=== PATIENT | male | born 1955 | race Hispanic/Latino ===

== ENCOUNTER → 2020-01-07 07:02 | Outpatient (CLI) | payer MEDICARE, OTHER, SELFPAY ==
[2020-01-07 09:59] LABS: Alanine Aminotransferase 25 IU/L (<50); Albumin 3.9 g/dL (3.5-5.0); Albumin Globulin Ratio 1.3 (1.0-2.8); Alkaline Phosphatase 74 U/L (38-126); Aspartate Aminotransferase 26 IU/L (17-59); BUN Creatinine Ratio 24.7 (6-22); Bilirubin Total 0.4 mg/dL (0.2-1.3); Blood Urea Nitrogen 21 mg/dL (9-20); Calcium 8.8 mg/dL (8.4-10.2); Carbon Dioxide 28 mmol/L (22-32); Chloride 105 mmol/L (98-107); Cholesterol 183 mg/dL (140-199); Estimated Glomerular Filt Rate > 60.0 mL/min (>60); Glucose 94 mg/dL (80-110); HDL Cholesterol 45 mg/dL (40-60); HEMOLYSIS < 15 (0-50); LDL Cholesterol Calculated 119 mg/dL (<100); Potassium 4.1 mmol/L (3.4-5.1); Sodium 140 mmol/L (137-145); Total Protein 6.9 g/dL (6.3-8.2); Triglycerides 96 mg/dL (35-150)
[2020-01-07 10:19] LABS: Erythrocyte Sedimentation Rate 6 MM/HR (0-15)
[2020-01-07 10:26] LABS: Prostate Specific Antigen 2.24 ng/mL (0.10-4.00)
[2020-01-07 10:56] LABS: Hemoglobin A1C% w Est Avg Glu 5.8 % (4.0-6.0)
== END ==
PROVIDERS: PCP Family Medicine; Referring Provider Family Medicine; Visit Provider Family Medicine
DX: M25.40 Effusion, unspecified joint (principal); R21 Rash and other nonspecific skin eruption
CPT/HCPCS: 36415; 80053; 80061; 83036; 84153; 85651

== ENCOUNTER → 2020-02-19 09:23 | Outpatient (CLI) | payer MEDICARE, OTHER, SELFPAY ==
[2020-02-20 09:39] LABS: COVID19 Sendout NOT DETECTED (Not Detect)
== END ==
PROVIDERS: PCP Family Medicine; Visit Provider Physician Assistant
DX: Z01.812 Encounter for preprocedural laboratory examination (principal)
CPT/HCPCS: 87635

== ENCOUNTER 2020-02-22 09:46 | Day surgery (SDC) | payer MEDICARE, OTHER, SELFPAY ==
[2020-02-22] VITALS (7 sets, daily range): BP systolic 109–174; BP diastolic 74–99; PULSE 51–67; RESP 11–20; TEMP 36.6–36.7; O2SAT 95–99; BMI 28.5
--- NOTE | 2020-02-22 | PATH_ITS ---
[facility] Accession Number: [id number] . 01 Material submitted: . cecum - CECAL POLYP . 02 Diagnosis: Cecum, Polyp, Biopsy: Tubulovillous adenoma. No evidence of malignancy or high-grade dysplasia. MRV 02/23/2020 1159 Local . 02 Electronically signed: . Kelsi Hallman MD, Pathologist NPI- [id number] . 01 Gross description: . CECAL POLYP: Received in formalin are multiple fragment(s) of poon, soft tissue measuring 1.5 x 1.0 x 0.5 cm in aggregate submitted entirely in 1 cassette(s) /QBJ 02/22/2020 2119 Local . 02 Pathologist provided ICD-10: D12.0 . 02 CPT . 621174 Performed at: 01 [facility] [address] [id number] MD Indra Porter MD Phone: [phone] Performed at: [address] [facility] [address] [place], [place] [id number] MD Kelsi Hallman MD Phone: [phone]
--- NOTE | 2020-02-22 09:47 | PM.HP.1 ---
History of Present Illness History of Present Illness Date Patient Seen: 02/22/20 Time Patient Seen: 09:47 Chief complaint: [id number] Narrative: The patient presents for colorectal sreening. They had a previous colonoscopy 5 years ago that demonstrated an adenomatous polyp which was removed. No personal or family history of colon cancer. On further history denies any recent gastrointestinal symptoms. No nausea, vomiting, abdominal pain, loss of appetite, unexplained weight loss, change in bowel habits, diarrhea, constipation, melena, hematochezia, or bright red blood per rectum. Patient History Medical History Allergic dermatitis (Acute) Tubular adenoma of colon (Acute) Umbilical hernia (Acute) Well adult (Acute) Family & Social History Family History Father Cancer Sister Cancer Tobacco & Substance use: Smoking Status Former smoker alcohol intake current Meds Home Medications and Allergies Home Medications Medication Instructions Recorded Confirmed Type No Known Home Medications 01/06/20 02/10/20 History Allergies Allergy/AdvReac Type Severity Reaction Status Date / Time No Known Drug Allergies Allergy Verified 02/22/20 10:01 Review of Systems Review of Systems Narrative: A 10 point review of systems is negative except as noted in the HPI Exam Narrative Exam Narrative: General-no acute distress, well nourished HEENT-moist mucous membranes, no scleral icterus Neck-supple, no lymphadenopathy Chest- non labored respirations, clear to auscultation bilaterally Cardiac-regular rate no peripheral edema Abdomen-soft, nontender, non distended Extremities-warm, well perfused Neurological-alert and oriented, no focal deficits Assessment & Plan Assessment and plan (1) Screening for colon cancer: Status: Acute Assessment & Plan narrative: The patient requires colorectal screening and colonoscopy is recommended. Technical details were discussed. Risks, benefits, alternatives explained. Risks including but not limited to myocardial infarction, aspiration, bleeding, pain, missed lesion, incomplete examination, need for further radiographic studies, colonic perforation, and need for major abdominal surgery were discussed. All questions were answered to their satisfaction, and they are in agreement with this plan. COVID-19 COVID-19 status: Negative Result date/Date tested (Pos, Neg/Pending): 02/19/20
[2020-02-22] MEDS: LACTATED RINGERS 1,000 ML 200 ML IV (10:15)
--- NOTE | 2020-02-22 10:40 | PM.OP.ENDO ---
Operative Date/Time/Diagnoses Date of procedure: 02/22/20 Time of procedure: 10:40 Pre-op diagnosis: Screening colonoscopy Post-op diagnosis: same Procedure & Clinicians Study performed: Colonoscopy Same procedure as scheduled: Yes Indications: 64-year-old male with previous adenomatous polyp found 5 years ago presents for routine screening Surgeon: Otto Pride Procedure Notes SCOAP/Timeout: Performed Procedure in detail: Patient placed in left lateral decubitus position. Time out was performed. Procedural sedation was administered with Versed and Fentanyl. A rectal exam demonstrated no external hemorrhoids no internal masses. Colonoscopy scope was placed into the rectum and advanced through the colon to the cecum. The ileocecal valve was identified. The scope was then slowly withdrawn examining colon thoroughly in all directions. The colonoscopy was notable for the following 1. Cecal adenomatous appearing polyp of 1 cm removed entirely in piecemeal fashion using hot snare 2. Quality of prep fair 3. Sigmoid diverticulosis Scope withdrawal time: 10 Sedation minutes: 30 Findings: diverticulosis and polyp Specimen(s): other (Cecal polyp) Complications: none Impression: Cecal polyp Post-procedure Recommendations: Colonscopy in 5 years Disposition: same day surgery
[2020-02-22] MEDS: MIDAZOLAM 5 MG/5 ML VIAL IV (10:44)
[2020-02-22] MEDS: fentaNYL 250 MCG/5 ML INJ IV (10:44)
== END 2020-02-22 11:40 | disposition home or self-care (01) ==
PROVIDERS: PCP Family Medicine; Referring Provider Surgery; Visit Provider Surgery
PROC: 0DJD8ZZ Inspection of Lower Intestinal Tract, Via Natural or Artificial Opening Endoscopic (ICD-10-PCS; CPT 45378; principal; 2020-02-22 10:45)
DX: Z12.11 Encounter for screening for malignant neoplasm of colon (principal); K57.30 Diverticulosis of large intestine without perforation or abscess without bleeding; D12.0 Benign neoplasm of cecum
CPT/HCPCS: 45385; 99152; 99153; J2250; J3010